=== PATIENT | male | born 2000 | race Caucasian/White ===

== ENCOUNTER 2020-03-26 21:27 | Emergency (ER) | payer MEDICAID ==
[~2020-03-26] VITALS: Ht 162.6 cm; Wt 59.8 kg
--- NOTE | 2020-03-26 21:51 | NUR ---
PATIENT WALKED BACK FROM TRIAGE WITH CHIEF C/O RIGHT PELVIC ABSCESS. PATIENT HAD ABSCESS PACKED FRIDAY EVENING, AND WAS TOLD TO REMOVE 24 HOURS LATER. PATIENT STARTED ABX FRIDAY MORNING. PATIENT HAS NOT REMOVED PACKING, AND SAYS THE ABSCESS LOOKS WORSE. NO SIGNS OF ACUTE DISTRESS, CONNECTED TO VITAL SIGNS, CALL LIGHT WITHIN REACH.
[2020-03-26] MEDS ORDERED: LIDOCAINE-MPF 1%, 5ML ONE (22:15)
--- NOTE | 2020-03-26 22:18 | NUR ---
I&D TRAY SET UP, NOTIFIED.
--- NOTE | 2020-03-26 22:30 | NUR ---
ER PROVIDER AT BEDSIDE PERFROMING I&D.
[2020-03-26 22:42] VITALS: BP 108/60
[2020-03-26] MEDS ORDERED: OXYcodone/APAP 5/325MG TABLET ONE (22:46)
--- NOTE | 2020-03-26 22:49 | NUR ---
PATIENT COMPLAINING OF 9/10 PAIN AT THE I&D SITE OF HIS RIGHT HIP. MEDICATED PER eMAR.
[2020-03-26] MEDS ORDERED: OXYcodone/APAP 5/325MG TABLET PO ONE (23:00)
--- NOTE | 2020-03-26 23:05 | NUR ---
Patient and mother given discharge instructions and they have confirmed that they understand the instructions, all questions answered. Patient ambulatory with steady gait from ED.
== END 2020-03-26 23:07 | disposition home or self-care (01) ==
LOC: ED 22:48
DX: L02.214 Cutaneous abscess of groin (principal)
CPT/HCPCS: 10060; 99282